=== PATIENT | female | born 1990 | race Two or more races ===

== ENCOUNTER 2023-10-12 23:00 | Inpatient (IN) | payer BC, OTHER ==
[2023-10-13 00:57] LABS: BASO % 0.1 % (0-2.0); EOS % 0.6 % (0-4.5); HEMATOCRIT 35.1 % (32.4-45.2); HEMOGLOBIN 12.3 GM/dL (10.7-15.3); LYMPH % 21.5 % (8-40); MCH 29.4 pg (25.7-33.7); MEAN PLT VOLUME 9.4 fl (7.5-11.1); MONO % 5.3 % (3.8-10.2); NEUT % 72.5 % (42.8-82.8); PLATELET COUNT 193 10^3/uL (134-434); RBC 4.18 M/mm3 (3.60-5.2); RDW 14.3 % (11.6-15.6); WHITE BLOOD COUNT 10.9 K/mm3 (4.0-10.0)
[2023-10-13 01:04] LABS: INR 0.93 (0.83-1.09); PROTHROMBIN TIME (PATIENT) 10.8 SEC (9.7-13.0)
[2023-10-13 01:07] LABS: ACTIVATED PTT 25.9 SECONDS (25.2-36.5)
[2023-10-13 01:14] VITALS: BMI 41.1
[2023-10-13 01:17] LABS: POTASSIUM 3.8 mmol/L (3.5-5.1)
[2023-10-13 01:19] LABS: BLOOD UREA NITROGEN 9.6 mg/dL (7-18); CALCIUM 8.6 mg/dL (8.5-10.1)
[2023-10-13 01:22] LABS: CREATININE 0.8 mg/dL (0.55-1.3)
[2023-10-13] MEDS: ELECTROLYTE-148 SOLN 1,000 ML IV SCH ×2 (01:45→12:35)
[2023-10-13] MEDS: CLINDAMYCIN 900 MG PREMIX IVPB 900 MG/50 ML BAG IVPB SCH (02:00)
[2023-10-13] MEDS ORDERED: CLINDAMYCIN 900 MG PREMIX IVPB 900 MG/50 ML BAG IVPB ONE ×3 (02:07→18:06)
[2023-10-13] MEDS ORDERED: OXYTOCIN 30 UNITS in 0.9% NS 30 UNIT/500 ML INFUS.BAG IVPB ONE (09:41)
[2023-10-13] MEDS: OXYTOCIN 30 UNITS in 0.9% NS 30 UNIT/500 ML INFUS.BAG IVPB SCH (09:50)
[2023-10-13 10:26] LABS: HIV INTERPRETATION NEGATIVE (NEGATIVE)
[2023-10-13 12:55] LABS: POC NITRAZINE POS
[2023-10-13] MEDS ORDERED: BUTORPHANOL TARTRATE 2 MG/ML VIAL ONE (13:33)
[2023-10-13] MEDS ORDERED: PROMETHAZINE HCL 25 MG/1 ML VIAL ONE (13:33)
[2023-10-13] MEDS: BUTORPHANOL TARTRATE 2 MG/ML VIAL IVPB ONE (13:40)
[2023-10-13] MEDS: PROMETHAZINE HCL 25 MG/1 ML VIAL IVPB ONE (13:40)
[2023-10-13] MEDS ORDERED: OXYTOCIN 20 UNITS in 0.9% NS 20 UNIT/1,000 ML INFUS.BAG IV ONE (18:50)
[2023-10-13] MEDS ORDERED: LIDOCAINE HCL 1% PRESERVATIVE FREE - 30ML VIAL ONE (19:12)
[2023-10-13] MEDS: OXYTOCIN 20 UNITS in 0.9% NS 20 UNIT/1,000 ML INFUS.BAG IV SCH (20:05)
[2023-10-13] MEDS ORDERED: METHYLERGONOVINE MALEATE 0.2 MG/1 ML AMP IM PRN (20:16)
[2023-10-13] MEDS ORDERED: ACETAMINOPHEN 325 MG TABLET (FP) PO PRN (20:16)
[2023-10-13] MEDS ORDERED: BISACODYL 10 MG SUPP.RECT RC PRN (20:16)
[2023-10-13] MEDS ORDERED: oxyCODONE HCL 5 MG TABLET PO PRN (20:16)
[2023-10-13] MEDS ORDERED: IBUPROFEN 600 MG TABLET (FP) PO ONE (22:20)
[2023-10-13] MEDS: IBUPROFEN 600 MG TABLET (FP) PO PRN (22:36)
[2023-10-14] MEDS: BENZOCAINE 20% 57 GM BOTTLE TP PRN (06:13)
[2023-10-14] MEDS: BENZOCAINE 28 GM HEMORRHOIDAL OINTMENT TP PRN (06:14)
[2023-10-14] MEDS: WITCH HAZEL 50% (TUCKS) 40 PAD/JAR PAD TP PRN (06:14)
[2023-10-14 06:36] LABS: HEMATOCRIT 33.6 % (32.4-45.2); HEMOGLOBIN 11.2 GM/dL (10.7-15.3); MCH 28.5 pg (25.7-33.7); MCHC 33.4 g/dl (32.0-36.0); MEAN CELL VOLUME 85.2 fl (80-96); MEAN PLT VOLUME 9.8 fl (7.5-11.1); PLATELET COUNT 187 10^3/uL (134-434); RBC 3.94 M/mm3 (3.60-5.2); RDW 14.1 % (11.6-15.6); WHITE BLOOD COUNT 20.9 K/mm3 (4.0-10.0)
[2023-10-14 09:36] LABS: ANISOCYTOSIS 0; MACROCYTOSIS 0
[2023-10-14] MEDS: PRENATAL VITAMINS W/ FOLIC ACID TABLET (FP) PO SCH (09:51)
[2023-10-14] MEDS: FERROUS SO4 325 MG TABLET (FP) PO SCH (09:51)
[2023-10-14] MEDS ORDERED: SENNOSIDES/DOCUSATE COMBO (SENNA PLUS) TABLET (UD) PO PRN (22:00)
[2023-10-15 10:21] VITALS: BP 119/68; PULSE 75; RESP 16; TEMP 98.2
== END 2023-10-15 12:55 | disposition home or self-care (01) | DRG 807 ==
LOC: JDEL 23:00 → JLDR 23:40 → J3W 10-13 22:28
PROVIDERS: ADMIT Obstetrics & Gynecology; ATTEND Obstetrics & Gynecology
PROC: 10E0XZZ Delivery of Products of Conception, External Approach (ICD-10-PCS; principal; 2023-10-13)
PROC: 0W8NXZZ Division of Female Perineum, External Approach (ICD-10-PCS; 2023-10-13)
DX: O69.81X0 Labor and delivery complicated by cord around neck, without compression, not applicable or unspecified (principal); Z37.0 Single live birth; Z3A.37 37 weeks gestation of pregnancy
CPT/HCPCS: 36415; 80048; 82962; 83986-QW; 85025; 85610; 85730; 86780; 86850; 86900; 86901; 87389